=== PATIENT | male | born 1980 | race Caucasian/White ===

== ENCOUNTER 2025-02-20 13:35 | Emergency (ER) | payer SELFPAY ==
[2025-02-20 13:42] VITALS: BP 184/109
[2025-02-20 15:43] VITALS: BMI 33.1
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
[2025-02-20 15:56] VITALS: BP 160/106
[2025-02-20] MEDS: TORADOL 15 MG IM (16:09)
== END 2025-02-20 16:24 | disposition home or self-care (01) ==
LOC: EMR 13:35
PROVIDERS: EMERGENCY PHYSICIAN Emergency Medicine; FAMILY PHYSICIAN Family Medicine
DX: S39.012A Strain of muscle, fascia and tendon of lower back, initial encounter (principal); M54.2 Cervicalgia; M79.602 Pain in left arm; V49.49XA Driver injured in collision with other motor vehicles in traffic accident, initial encounter; Y92.410 Unspecified street and highway as the place of occurrence of the external cause
CPT/HCPCS: 96372; 99284